=== PATIENT | female | born 1985 | race Caucasian/White ===

== ENCOUNTER → 2016-06-11 | Outpatient (CLI) | payer OTHER | END | disposition home or self-care (01) | LOC: YCFC.O 11:02 | PROVIDERS: ATTEND Nurse Practitioner Family | DX: Z20.5 Contact with and (suspected) exposure to viral hepatitis (principal) ==

== ENCOUNTER 2019-06-26 18:04 | Emergency (ER) | payer MEDICAID ==
[2019-06-26 18:43] VITALS: TEMP 98.8
--- NOTE | 2019-06-26 20:11 | ED.PDOC ---
History of Present Illness - General Chief Complaint: Dental/Mouth Stated Complaint: tooth ache Time Seen by Provider: 06/26/19 20:07 Source: patient - History of Present Illness Initial Comments: 34 yo female who presents with cc of toothache. Reports to Left maxillary 2nd molar, onset 2 weeks ago, seemed to subside past couple days but worsened again today, constant, sharp/throbbing, 9/10 severity, tried Aleve and topical therapies at home without relief, sometimes radiates to left ear. Denies any swelling/redness/warmth/drainage. Denies fevers, chills, sore throat, acute injury. States she is trying to get into her dentist but doesn't have the money. Allergies/Adverse Reactions: Allergies NO KNOWN ALLERGY Allergy (Verified 06/26/19 18:44) Home Medications: Ambulatory Orders Albuterol Inhaler [Ventolin Hfa Inhaler] 2 - 4 puff INH Q4H PRN #1 inh 06/18/19 Albuterol Sulfate Nebs [Proventil Nebs] 2.5 mg INH Q4H #100 vial 06/18/19 Benzonatate Perles [Tessalon Perles] 100 mg PO Q6HR PRN #20 cap 06/18/19 predniSONE 40 mg PO DAILY 4 Days tab 06/18/19 Acetaminophen W/ Codeine [Tylenol W/ CODEINE #3] 1 ea PO Q6H PRN 5 Days #10 06/26/19 Amoxicillin 500 mg PO TID 7 Days #21 tab 06/26/19 Review of Systems - Review of Systems Review of Systems: 06/26/19 20:14 as per HPI All other Systems: Reviewed and Negative Past Medical History (General) - Patient Medical History Hx Seizures: No Hx Stroke: No Hx Dementia: No Hx Asthma: Yes Hx of COPD: No Hx Cardiac Disorders: No Hx Congestive Heart Failure: No Hx Pacemaker: No Hx Hypertension: No Hx Thyroid Disease: No Hx Diabetes: No Hx Gastroesophageal Reflux: No Hx Renal Disease: No Hx Cancer: No Hx of HIV: No Hx Hepatitis C: No Hx MRSA: No - Vaccination History Hx Tetanus, Diphtheria Vaccination: No Hx Influenza Vaccination: Yes Hx Pneumococcal Vaccination: No - Social History Hx Tobacco Use: Yes Hx Chewing Tobacco Use: No Hx Alcohol Use: Yes Hx Substance Use: No Hx Substance Use Treatment: No Hx Depression: Yes Hx Physical Abuse: No Hx Emotional Abuse: No Hx Suspected Abuse: No - Activities of Daily Living Hospice Agency (if applicable):: None - Female History Patient is a Female of Child Bearing Age (10 -59 yrs old): Yes Hx Last Menstrual Period: 05/17/13 Patient : No - Triage Comment ED Triage Comment: tooth ache x2 days Family Medical History - Family History Mother Family History: Unknown Physical Exam - Physical Exam General Appearance: Alert, Comfortable, No apparent distress Eye Exam: bilateral normal Ears, Nose, Throat: hearing grossly normal, normal pharynx, other - numerous dental caries. Moderate dental caries to Left maxillary 2nd molar, no gumlines redness/swelling/warmth/drainage. No noted facial swelling. Moderate ttp to the affected tooth. Neck: non-tender, full range of motion, supple, normal inspection Respiratory: lungs clear, normal breath sounds, no respiratory distress, no accessory muscle use Cardiovascular/Chest: normal peripheral pulses, regular rate, rhythm, no edema, no murmur Gastrointestinal/Abdominal: non tender, soft Back Exam: normal inspection Extremity: normal range of motion, non-tender, normal inspection Neurologic: no motor/sensory deficits, alert, normal mood/affect, oriented x 3 Skin Exam: normal color, warm/dry Progress - Progress Progress: 06/26/19 20:16 Toothache, Left maxillary 2nd molar -seems due to dental caries. Consider also developing pulpitis/abscess. -will give Rx of amoxicillin 500 mg PO TID x7 days and PRN Rx of Tylenol #3 for breakthrough pain only - advised she needs to f/u with her dentist for definitive treatment -dc home in good condition Osmin Gilliam MD Billing #[id number] Departure - Departure Clinical Impression: Dental caries Time of Disposition: 20:08 Disposition: Discharge to Home or Self Care Condition: Good Departure Forms: ED Discharge - Pt. Copy, Patient Portal Self Enrollment Instructions: DI for Dental Pain Diet: resume usual diet Referrals: NURY BRAVO [Primary Care Provider] - 1-2 Weeks Prescriptions: Acetaminophen W/ Codeine [Tylenol W/ CODEINE #3] 1 ea PO Q6H PRN 5 Days #10 PRN Reason: Pain Amoxicillin 500 mg PO TID 7 Days #21 tab Home Medications: Ambulatory Orders Albuterol Inhaler [Ventolin Hfa Inhaler] 2 - 4 puff INH Q4H PRN #1 inh 06/18/19 Albuterol Sulfate Nebs [Proventil Nebs] 2.5 mg INH Q4H #100 vial 06/18/19 Benzonatate Perles [Tessalon Perles] 100 mg PO Q6HR PRN #20 cap 06/18/19 predniSONE 40 mg PO DAILY 4 Days tab 06/18/19 Acetaminophen W/ Codeine [Tylenol W/ CODEINE #3] 1 ea PO Q6H PRN 5 Days #10 06/26/19 Amoxicillin 500 mg PO TID 7 Days #21 tab 06/26/19 Additional Instructions: Continue OTC medications such as Advil, Tylenol, topical Orajel for pain control. You may take Tylenol #3 for breakthrough pain. Do not take while driving as it may cause drowsiness. Follow up with your dentist for definitive care of your toothache.
[2019-06-26] MEDS ORDERED: ACETAMINOPHEN W/COD #3 TAB (ER Disp) PO ONE (20:15)
[2019-06-26] MEDS ORDERED: AMOXICILLIN 500 MG CAP PO ONE (20:15)
[2019-06-26] MEDS ORDERED: ACETAMINOPHEN W/COD #3 TAB (ER Disp) ONE (20:17)
[2019-06-26] MEDS ORDERED: AMOXICILLIN 500 MG CAP ONE (20:17)
[2019-06-26 20:22] VITALS: BP 149/85; O2SAT 100
== END 2019-06-26 20:23 | disposition home or self-care (01) ==
LOC: ER 18:04
DX: K02.9 Dental caries, unspecified (principal); F32.9 Major depressive disorder, single episode, unspecified; J45.909 Unspecified asthma, uncomplicated; Z87.891 Personal history of nicotine dependence; Z79.899 Other long term (current) drug therapy

== ENCOUNTER 2019-09-17 16:21 | Emergency (ER) | payer MEDICAID, OTHER ==
--- NOTE | 2019-09-17 16:33 | ED.PDOC ---
History of Present Illness - General Chief Complaint: Dental/Mouth Stated Complaint: left tooth pain Time Seen by Provider: 09/17/19 16:30 Source: patient, RN notes reviewed, Vital Signs reviewed Additional Information: 34yo F with history hypothyroidism, ADHD presents for left side of mouth pain. Reports has had previous abscess on left mandibular tooth, and has pain at that location again. Reports dull, non-radiating pain at site, with no other areas of pain reported. Denies fever, cough, sick contacts, drooling, inability to swallow, neck pain/swelling, or other complaint at this time. Has not yet seen dentistry for this problem. - History of Present Illness Allergies/Adverse Reactions: Allergies NO KNOWN ALLERGY Allergy (Verified 06/26/19 18:44) Home Medications: Ambulatory Orders RX: Albuterol Inhaler [Ventolin Hfa Inhaler] 2 - 4 puff INH Q4H PRN #1 inh 06/18/19 RX: Albuterol Sulfate Nebs [Proventil Nebs] 2.5 mg INH Q4H #100 vial 06/18/19 RX: predniSONE 40 mg PO DAILY 4 Days tab 06/18/19 Acetaminophen W/ Codeine [Tylenol W/ CODEINE #3] 1 ea PO Q6H PRN 5 Days #10 06/26/19 Acetaminophen W/ Codeine [Tylenol W/ CODEINE #3] 1 tablet PO Q6H PRN #12 09/17/19 Albuterol Inhaler [Ventolin Hfa Inhaler] 2 - 4 puff INH Q4H PRN #1 inh 09/17/19 Amoxicillin & Pot Clavulanate [Augmentin Tab] 875 mg PO BID 7 Days tab 09/17/19 Ondansetron Odt [Zofran ODT] 4 mg PO Q8H PRN #20 tab 09/17/19 Review of Systems - Review of Systems Constitutional: States: no symptoms reported. Denies: chills, fever EENTM: States: mouth pain. Denies: eye pain, ear pain, nose pain, throat pain, throat swelling, mouth swelling Respiratory: States: no symptoms reported Cardiology: States: no symptoms reported All other Systems: Reviewed and Negative Past Medical History (General) - Patient Medical History Hx Seizures: No Hx Stroke: No Hx Dementia: No Hx Asthma: Yes Hx of COPD: No Hx Cardiac Disorders: No Hx Congestive Heart Failure: No Hx Pacemaker: No Hx Hypertension: No Hx Thyroid Disease: No Hx Diabetes: No Hx Gastroesophageal Reflux: No Hx Renal Disease: No Hx Cancer: No Hx of HIV: No Hx Hepatitis C: No Hx MRSA: No - Vaccination History Hx Tetanus, Diphtheria Vaccination: No Hx Influenza Vaccination: Yes Hx Pneumococcal Vaccination: No - Social History Hx Tobacco Use: Yes Hx Chewing Tobacco Use: No Hx Alcohol Use: Yes Hx Substance Use: No Hx Substance Use Treatment: No Hx Depression: Yes Hx Physical Abuse: No Hx Emotional Abuse: No Hx Suspected Abuse: No - Female History Hx Last Menstrual Period: 05/17/13 Patient : No Family Medical History - Family History Mother Family History: Unknown Physical Exam - Physical Exam General Appearance: Alert, No apparent distress, Obese, Well Developed, Well Nourished Eye Exam: bilateral normal Ears, Nose, Throat: hearing grossly normal, normal pharynx, other - uvula midline, no lingual elevation, no tonsillar exudate or erythema; poor dentition with multiple carious teeth; granulation tissue adjacent to tooth 19 with no other discharge, edema, fluctuance, or bleeding noted Neck: non-tender, full range of motion, supple Respiratory: lungs clear, normal breath sounds, no respiratory distress Cardiovascular/Chest: regular rate, rhythm, no murmur 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 No noted extensive odontogenic abscess requiring emergent drainage. Plan for pain control PRN, ED warnings, and refer to dentistry for definitive care. [facility] aware checked - no record noted. Patient and I wore masks for duration of encounter, and I maintained a distance of 6 feet except for those brief times need for physical exam. Institutional screening protocol for coronavirus performed in triage. 09/17/19 16:39 Departure - Departure Clinical Impression: Dental caries, Acute pain of mouth Time of Disposition: 16:37 Disposition: Discharge to Home or Self Care Condition: Good Departure Forms: ED Discharge - Pt. Copy, Patient Portal Self Enrollment Instructions: DI for Dental Pain, DI for Mouth Lesions, DI for Mouth Pain Diet: resume usual diet Activity: increase activity as tolerated Referrals: NURY BRAVO [Primary Care Provider] - 1-2 Weeks GUERRERO DENT DDS [Dentist] - 1-2 Weeks Maykel Ibrahim III [Dentist] - 1-2 Weeks Prescriptions: Acetaminophen W/ Codeine [Tylenol W/ CODEINE #3] 1 tablet PO Q6H PRN #12 PRN Reason: Pain -- Severe Albuterol Inhaler [Ventolin Hfa Inhaler] 2 - 4 puff INH Q4H PRN #1 inh PRN Reason: Wheezing Amoxicillin & Pot Clavulanate [Augmentin Tab] 875 mg PO BID 7 Days tab Ondansetron Odt [Zofran ODT] 4 mg PO Q8H PRN #20 tab PRN Reason: Nausea Home Medications: Ambulatory Orders RX: Albuterol Inhaler [Ventolin Hfa Inhaler] 2 - 4 puff INH Q4H PRN #1 inh 06/18/19 RX: Albuterol Sulfate Nebs [Proventil Nebs] 2.5 mg INH Q4H #100 vial 06/18/19 RX: predniSONE 40 mg PO DAILY 4 Days tab 06/18/19 Acetaminophen W/ Codeine [Tylenol W/ CODEINE #3] 1 ea PO Q6H PRN 5 Days #10 06/26/19 Acetaminophen W/ Codeine [Tylenol W/ CODEINE #3] 1 tablet PO Q6H PRN #12 09/17/19 Albuterol Inhaler [Ventolin Hfa Inhaler] 2 - 4 puff INH Q4H PRN #1 inh 09/17/19 Amoxicillin & Pot Clavulanate [Augmentin Tab] 875 mg PO BID 7 Days tab 09/17/19 Ondansetron Odt [Zofran ODT] 4 mg PO Q8H PRN #20 tab 09/17/19
[2019-09-17 16:37] VITALS: BP 120/102; TEMP 98.1; O2SAT 97
== END 2019-09-17 16:56 | disposition home or self-care (01) ==
LOC: ER 16:21
DX: K02.9 Dental caries, unspecified (principal); K08.89 Other specified disorders of teeth and supporting structures; J45.909 Unspecified asthma, uncomplicated; E03.9 Hypothyroidism, unspecified; F17.200 Nicotine dependence, unspecified, uncomplicated

== ENCOUNTER → 2019-09-25 | Outpatient (CLI) | payer OTHER ==
--- NOTE | 2019-09-25 10:00 | RAD ---
EXAM DESCRIPTION: Knee,Left Complete CLINICAL HISTORY: 34 years Female, PAIN IN LEFT KNEE COMPARISON: None. TECHNIQUE: 4 view radiographs of the left knee. IMPRESSION: No acute displaced fracture. No dislocation. Mild joint space narrowing of the medial and lateral weightbearing knee compartments without significant subchondral sclerosis. Small moderate marginal osteophyte extending off the lateral knee joint line. Mild patellofemoral arthrosis. Chronic fracture versus bipartite patella of the medial aspect of the patella. Opacification in the suprapatellar bursa likely representing small knee joint effusion. No soft tissue defect or radiopaque foreign body. Electronically signed by: Alen Champagne MD 09/25/2019 9:59 AM CDT
--- NOTE | 2019-09-25 10:00 | RAD ---
EXAM DESCRIPTION: Pelvis CLINICAL HISTORY: 34 years Female, PAIN IN LEFT HIP COMPARISON: None. FINDINGS: A single view of the pelvis demonstrates normal mineralization. The AP view of each hip shows no specific abnormality the joint space is maintained on both the right and left. No femoral head collapse or disruption of the soft tissue planes or osteonecrosis noted. Radiopaque markers on each side of the pelvis suggest prior tubal ligation. No soft tissue masses IMPRESSION: Negative pelvis one view. Electronically signed by: Kirby Valerio MD 09/25/2019 9:58 AM CDT
== END ==
LOC: RAD 09:14
PROVIDERS: ATTEND Orthopaedic Surgery
DX: M25.862 Other specified joint disorders, left knee (principal); M17.12 Unilateral primary osteoarthritis, left knee; M22.92 Unspecified disorder of patella, left knee; M25.762 Osteophyte, left knee; M25.552 Pain in left hip

== ENCOUNTER 2020-02-15 20:18 | Emergency (ER) | payer MEDICAID, OTHER ==
[2020-02-15] MEDS ORDERED: HYDROcodone 5MG/APAP 325MG 1 EA TAB PO ONE ×2 (20:28→20:29)
--- NOTE | 2020-02-15 20:28 | ED.PDOC ---
History of Present Illness - General Time Seen by Provider: 02/15/20 20:19 Source: patient, RN notes reviewed, Vital Signs reviewed, EMS notes reviewed Exam Limitations: no limitations - History of Present Illness Initial Comments: 34 yo F was [place] when she missed a step and fell onto her left knee. HX of fracture on that knee previously. did not hit head, no other injuries. Occurred: just prior to arrival Allergies/Adverse Reactions: Allergies NO KNOWN ALLERGY Allergy (Verified 06/26/19 18:44) Home Medications: Ambulatory Orders Albuterol Inhaler [Ventolin Hfa Inhaler] 2 - 4 puff INH Q4H PRN #1 inh 06/18/19 Albuterol Sulfate Nebs [Proventil Nebs] 2.5 mg INH Q4H #100 vial 06/18/19 Acetaminophen W/ Codeine [Tylenol W/ CODEINE #3] 1 ea PO Q6H PRN #6 ea 02/15/20 Ibuprofen 600 mg PO QID PRN #30 tab 02/15/20 Review of Systems - Review of Systems Constitutional: Denies: chills, fever EENTM: Denies: blurred vision, ear discharge, throat pain Respiratory: Denies: cough, short of breath Cardiology: Denies: chest pain, palpitations Gastrointestinal/Abdominal: Denies: abdominal pain, diarrhea Genitourinary: Denies: discharge, frequency Musculoskeletal: States: joint pain. Denies: back pain, joint swelling, muscle pain Skin: Denies: change in color, rash Neurological: Denies: headache, numbness, paresthesia, pre-existing deficit, tremors, weakness Endocrine: Denies: increased urine, unexplained weight gain, unexplained weight loss Hematologic/Lymphatic: Denies: easy bleeding, easy bruising Past Medical History (General) - Patient Medical History Hx Seizures: No Hx Stroke: No Hx Dementia: No Hx Asthma: Yes Hx of COPD: No Hx Cardiac Disorders: No Hx Congestive Heart Failure: No Hx Pacemaker: No Hx Hypertension: No Hx Thyroid Disease: No Hx Diabetes: No Hx Gastroesophageal Reflux: No Hx Renal Disease: No Hx Cancer: No Hx of HIV: No Hx Hepatitis C: No Hx MRSA: No Hx Other PMH: Yes - ADHD - Vaccination History Hx Tetanus, Diphtheria Vaccination: No Hx Influenza Vaccination: Yes Hx Pneumococcal Vaccination: No - Social History Hx Tobacco Use: Yes Hx Chewing Tobacco Use: No Hx Alcohol Use: Yes Hx Substance Use: No Hx Substance Use Treatment: No Hx Depression: Yes Hx Physical Abuse: No Hx Emotional Abuse: No Hx Suspected Abuse: No - Female History Hx Last Menstrual Period: 05/17/13 Patient : No Family Medical History - Family History Mother Family History: Unknown Living Status: Unknown Physical Exam - Physical Exam General Appearance: Alert, Comfortable, No apparent distress, Obese, Well Developed, Well Groomed, Well Hydrated, Well Nourished, Other - antalgic gait. Eyes, Ears, Nose, Throat: PERRL/EOMI, normal ENT inspection Neck: non-tender, full range of motion, supple, normal inspection Cardiovascular/Respiratory: regular rate, rhythm, no M/R/G, normal peripheral pulses, no JVD, normal breath sounds, no respiratory distress Gastrointestinal/Abdominal: non-tender, no organomegaly, no hernia Back: normal inspection, no CVA tenderness, no vertebral tenderness Thigh/Hip: normal inspection, non-tender, no evidence of injury, normal ROM Leg: normal inspection, non-tender, no evidence of injury Knee: normal inspection, no evidence of injury, other - no ligament instability. normal lachmans. Ankle: normal inspection, non-tender, no evidence of injury DTR - Lower Extremities: 2+: Patellar, left, Patellar, right Neuro/Tendon: normal sensation, normal motor functions, normal tendon functions, responds to pain, no evidence tendon injury Mental Status: alert, oriented x 3 Skin: normal color, warm/dry Comments: distal pulses intact katt symmetric. Progress - Progress Progress: 02/15/20 20:55 The data reviewed when caring for this patient included: nurse notes, prior records, etc. The history and assessments from nurses notes were reviewed and considered, and the patient's home medication list was also reviewed and considered. My assessment and the results of testing completed here in the ED were discussed with the patient/family. All questions were answered, and they express understanding of my assessment and the plan. They have been instructed to return if their symptoms worsen, and have been asked to follow up with their primary care physician to recheck today's presenting complaint. may need mri as an outpatient if pain continues. Strict return precautions given. I have reviewed medication, benefits, alternatives and side effects. Patient decided to proceed with medication. Indigo Hinton DO #[id number] 02/15/20 20:56 - EKG/XRAY/CT XRAY: knee - no acute fracture or dislocation. Departure - Departure Clinical Impression: Knee sprain Qualifiers: Encounter type: initial encounter Involved ligament of knee: unspecified ligament Laterality: left Qualified Code(s): S83.92XA - Sprain of unspecified site of left knee, initial encounter Fall Qualifiers: Encounter type: initial encounter Qualified Code(s): W19.XXXA - Unspecified fall, initial encounter Time of Disposition: 20:50 Disposition: Discharge to Home or Self Care Instructions: Knee Sprain (DC), Preventing Falls, Knee Pain (DC) Referrals: NURY BRAVO [Primary Care Provider] - 1-2 Days Prescriptions: Ibuprofen 600 mg PO QID PRN #30 tab PRN Reason: Pain Acetaminophen W/ Codeine [Tylenol W/ CODEINE #3] 1 ea PO Q6H PRN #6 ea PRN Reason: Pain Home Medications: Ambulatory Orders Albuterol Inhaler [Ventolin Hfa Inhaler] 2 - 4 puff INH Q4H PRN #1 inh 06/18/19 Albuterol Sulfate Nebs [Proventil Nebs] 2.5 mg INH Q4H #100 vial 06/18/19 Acetaminophen W/ Codeine [Tylenol W/ CODEINE #3] 1 ea PO Q6H PRN #6 ea 02/15/20 Ibuprofen 600 mg PO QID PRN #30 tab 02/15/20
[2020-02-15 20:33] VITALS: BP 173/88; TEMP 97.8; O2SAT 98
--- NOTE | 2020-02-15 20:54 | RAD ---
EXAM DESCRIPTION: Knee,Left Complete CLINICAL HISTORY: fall COMPARISON: None FINDINGS: Three x-ray views of the left knee were submitted. There is osteophytic formation within the lateral and patellofemoral compartments. There is lateral subluxation of the patella, unchanged compared with the prior exam. Calcification medial to the patella is unchanged compared with the prior examination. There is no acute fracture or dislocation. Bone mineralization is within normal limits. There is no radiopaque foreign body material. IMPRESSION: No acute fracture or dislocation. Stable exam as described. Electronically signed by: Juarez Darby MD 02/15/2020 8:52 PM CDT
== END 2020-02-15 21:09 | disposition home or self-care (01) ==
LOC: ER 20:18
DX: S83.92XA Sprain of unspecified site of left knee, initial encounter (principal); F90.9 Attention-deficit hyperactivity disorder, unspecified type; F32.9 Major depressive disorder, single episode, unspecified; J45.909 Unspecified asthma, uncomplicated; Z87.81 Personal history of (healed) traumatic fracture; W18.39XA Other fall on same level, initial encounter; Y92.89 Other specified places as the place of occurrence of the external cause; Z87.891 Personal history of nicotine dependence; Z79.899 Other long term (current) drug therapy